=== PATIENT | female | born 1950 | race Caucasian/White ===

== ENCOUNTER → 2017-02-16 | Outpatient (CLI) | payer MEDICARE ==
--- NOTE | 2017-02-16 15:53 | REPMRS ---
Patient History The patient states she had a clinical breast exam in 03/02 Patient is postmenopausal and has history of skin cancer at age 65. No known family history of cancer. Taking unspecified hormones for 33 years. Digital Woman Screen Mammo: February 16, 2017 - Exam #: [id number] Bilateral CC and MLO view(s) were taken. Technologist: Ailyn Zelaya, Technologist Prior study comparison: January 04, 2016, digital woman screen mammo performed at [facility]. November 29, 2014, digital woman screen mammo performed at [facility]. November 14, 2013, bilateral bilat screen digital mammo, performed at [facility] ([facility]). FINDINGS: There are scattered fibroglandular densities. There has been no change in the appearance of the mammogram from the prior studies. There is a mild amount of scattered fibroglandular density which is fairly symmetric. There is no interval development of dominant mass, architectural distortion, or clustered microcalcification suggestive of malignancy. ASSESSMENT: BI-RADS/ACR category 1 mammogram. Negative. Recommendation Routine screening mammogram in 1 year (for women over age 40). This mammogram was interpreted with the aid of an FDA-approved computer-aided dectection system. Electronically Signed By: Tee Denney MD 02/16/17 1420
== END ==
LOC: M WHC 11:05
PROVIDERS: ATTEND Nurse Practitioner Family
DX: Z01.419 Encounter for gynecological examination (general) (routine) without abnormal findings (principal); Z12.31 Encounter for screening mammogram for malignant neoplasm of breast; Z78.0 Asymptomatic menopausal state; Z12.12 Encounter for screening for malignant neoplasm of rectum
CPT/HCPCS: 82270; 87210; G0101; G0202

== ENCOUNTER → 2018-02-22 | Outpatient (CLI) | payer MEDICARE | LOC: M WHC 10:45 | DX: Z01.419 Encounter for gynecological examination (general) (routine) without abnormal findings (principal); Z12.31 Encounter for screening mammogram for malignant neoplasm of breast (principal); Z78.0 Asymptomatic menopausal state; Z92.29 Personal history of other drug therapy; Z85.9 Personal history of malignant neoplasm, unspecified; Z12.12 Encounter for screening for malignant neoplasm of rectum | CPT/HCPCS: 77067 ==

== ENCOUNTER → 2019-02-23 | Outpatient (CLI) | payer MEDICARE ==
--- NOTE | 2019-02-23 15:18 | REPMRS ---
Patient History The patient states she had a clinical breast exam in 02/2019. Patient is postmenopausal and has history of skin cancer at age 65. No known family history of cancer. Taking unspecified hormones for 35 years. Digital Woman Screen Mammo: February 23, 2019 - Exam #: [id number] Bilateral CC and MLO view(s) were taken. Technologist: Ailyn Zelaya, Technologist Prior study comparison: February 22, 2018, digital woman screen mammo performed at [facility]. February 16, 2017, digital woman screen mammo performed at [facility]. January 04, 2016, digital woman screen mammo performed at [facility]. FINDINGS: There are scattered fibroglandular densities. There has been no change in the appearance of the mammogram from the prior studies. There is a mild amount of scattered fibroglandular density which is fairly symmetric. There is no interval development of dominant mass, architectural distortion, or clustered microcalcification suggestive of malignancy. 3-D tomosynthesis shows no additional findings. Assessment: BI-RADS/ACR category 1 mammogram. Negative Mammogram. Recommendation Routine screening mammogram of both breasts in 1 year (for women over age 40). This patient's Lifetime Breast Cancer RIsk is estimated at 3.9 %. This mammogram was interpreted with the aid of an FDA-approved computer-aided dectection system. Electronically Signed By: Tee Denney MD 02/23/19 2056
== END ==
LOC: M WHC 10:53
PROVIDERS: ATTEND Nurse Practitioner Family
DX: Z01.419 Encounter for gynecological examination (general) (routine) without abnormal findings (principal); Z12.31 Encounter for screening mammogram for malignant neoplasm of breast; Z78.0 Asymptomatic menopausal state; Z85.828 Personal history of other malignant neoplasm of skin; Z92.29 Personal history of other drug therapy; Z12.12 Encounter for screening for malignant neoplasm of rectum
CPT/HCPCS: 77063; 77067; 82270; G0101

== ENCOUNTER → 2021-06-12 | Outpatient (CLI) | payer MEDICARE ==
--- NOTE | 2021-06-12 11:43 | REPMRS ---
Patient History The patient states she had a clinical breast exam in May 2021. No known family history of cancer. Taking unspecified hormones for 35 years. No breast complaints today Patient signed the MRS sheet 1st covid vaccine 01/16/21-left arm-Pfizer 2nd covid vaccine 02/03/21-left arm Priors on PACS Patient Identification Verified Digital Woman Screen Mammo: June 12, 2021 - Exam #: [id number] Bilateral CC and MLO view(s) were taken. Technologist: Geeta Liz, Technologist Prior study comparison: June 08, 2020, bilateral digital woman screen mammo performed at [facility] [place]. February 23, 2019, bilateral digital woman screen mammo performed at [facility] [place]. FINDINGS: There are scattered fibroglandular densities. Screening. Digital screening (2D) mammography was performed bilaterally in the CC and MLO projections. Additionally, breast tomosynthesis (3D mammography) was performed bilaterally in the CC and MLO projections. Todays exam was compared to the prior exam/exams. By history, the patient has no complaints of a palpable breast abnormality or other significant breast complaints. The breasts are unchanged in size and shape. There are no prashant-soft tissue densities or spiculated masses. There is no internal architectural distortion. Once again, stable benign appearing calcifications are seen.There are no suspicious prashant-calcific clusters. Skin thickening or nipple retraction is not present. IMPRESSION: BI-RADS Category 2- Benign Findings. There is no evidence of malignant alteration of the breasts. Followup examination recommended in one year. The Volpara volumetric breast density category is B, there are scattered areas of fibroglandular densities. This mammogram was read with the assistance of [facility][x+1],an FDA approved computer aided detection system for mammography. The lifetime Tyrer-Cuzick score is 3.4% Negative x-ray reports should not delay surgical consultation if a dominant or clinically suspicious mass is present. Not all breast cancers can be identified by mammography. Therefore, we recommend that you continue to perform regular breast self-examination and physical examination and then promptly contact your physician of any concerns or changes. Adenosis and dense breasts may obscure an underlying neoplasm. Assessment: BI-RADS/ACR category 2 mammogram. Benign Findings. Recommendation Routine screening mammogram of both breasts in 1 year. Electronically Signed By: Noel Goldstein DO 06/12/21 1141
--- NOTE | 2021-06-12 14:10 | DEXAMM ---
INDICATION: SCR FOR OSTEOPOROSIS/MENOPAUSAL. COMPARISON: Comparison study May 21, 2011 and September 16, 2001.. TECHNIQUE: Bone density was measured using dual-energy x-ray absorptionmetry (DEXA). FINDINGS: AP SPINE L1-L4 BMD 1.565 g/cm2 Young Adult T-Score 3.2 Age Matched Z-Score 4.9. LT FEMUR, TOTAL BMD 0.964 g/cm2 Young Adult T-Score 4-0.3 Age Matched Z-Score 1.1. LT NECK BMD 0.957 g/cm2 Young Adult T-Score -0.6 Age Matched Z-Score 1.1. RT FEMUR, TOTAL BMD 0.990 g/cm2 Young Adult T-Score -0.1 Age Matched Z-Score 1.3. RT NECK BMD 0.949 g/cm2 Young Adult T-Score -0.6 Age Matched Z-Score 1.1. IMPRESSION: There is normal bone density of the spine. There is normal bone density of the left hip. There is normal bone density of the right hip. The density of the spine has increased 8.5% since the initial exam on September 16, 2001. The density of the spine increased 7.7% since most recent exam on May 21, 2011. The density of the left hip has decreased 6.5% since initial exam on September 16, 2001. The density of the left hip has decreased 2.3% since most recent exam on May 21, 2011. The density of the right hip has decreased 2.3% since the initial exam on September 16, 2001. The density of the right hip has increased 2.2% since the most recent exam on May 21, 2011. FOLLOW-UP: Recommendation for the next bone density exam: 5-10 years. <Electronically signed by Tee Denney > 06/12/21 1482
== END ==
LOC: M WHC 10:08
PROVIDERS: ATTEND Nurse Practitioner Women's Health
DX: Z12.31 Encounter for screening mammogram for malignant neoplasm of breast (principal); Z13.820 Encounter for screening for osteoporosis; N95.1 Menopausal and female climacteric states

== ENCOUNTER → 2022-09-11 | Outpatient (CLI) | payer MEDICARE, SELFPAY | LOC: M WHC 11:24 | PROVIDERS: ATTEND Nurse Practitioner Family | DX: Z12.31 Encounter for screening mammogram for malignant neoplasm of breast (principal) ==

== ENCOUNTER → 2023-09-14 | Outpatient (CLI) | payer MEDICARE | LOC: M WHC 10:30 | PROVIDERS: ATTEND Nurse Practitioner Family | DX: Z12.31 Encounter for screening mammogram for malignant neoplasm of breast (principal) ==

== ENCOUNTER → 2024-09-15 | Outpatient (CLI) | payer MEDICARE | LOC: M WHC 11:40 | PROVIDERS: ATTEND Nurse Practitioner Family | DX: Z12.31 Encounter for screening mammogram for malignant neoplasm of breast (principal); R30.0 Dysuria; R92.323 Mammographic fibroglandular density, bilateral breasts ==

== ENCOUNTER → 2025-10-11 | Outpatient (CLI) | payer MEDICARE | LOC: M WHC 14:46 | PROVIDERS: ATTEND Nurse Practitioner Family | DX: Z12.31 Encounter for screening mammogram for malignant neoplasm of breast (principal); R92.323 Mammographic fibroglandular density, bilateral breasts ==